=== PATIENT | female | born 1955 | race Caucasian/White ===

== ENCOUNTER 2023-05-14 10:56 | Day surgery (SDC) | payer MEDICARE, OTHER ==
[~2023-05-14] VITALS: Ht 160 cm; Wt 74.4 kg
[2023-05-14] MEDS ORDERED: BUPIVACAINE /PF 0.25% 30 ML VIAL INJ ONE (12:40)
[2023-05-14] MEDS ORDERED: ceFAZolin SODIUM 2 GM VIAL ONE (12:40)
[2023-05-14] MEDS ORDERED: SEVOFLURANE 15 MIN GAS INH ONE (12:40)
[2023-05-14] MEDS ORDERED: NS IRRIG SOLN 1000 ML IR ONE (12:40)
[2023-05-14] MEDS ORDERED: LR 1,000 ML IV.SOLN IV ONE (12:40)
[2023-05-14] MEDS ORDERED: PROPOFOL 200MG/ 20ML VIAL (DIPRIVAN) IV ONE (12:40)
[2023-05-14] MEDS ORDERED: KETOROLAC TROMETHAMINE 30 MG VIAL ONE (12:40)
[2023-05-14] MEDS ORDERED: ONDANSETRON HCL 4 MG/2 ML VIAL ONE (12:40)
[2023-05-14] MEDS ORDERED: METOCLOPRAMIDE HCL 10 MG/2 ML VIAL IVP PRN (13:15)
[2023-05-14] MEDS ORDERED: IBUPROFEN 600 MG TABLET PO ONE (13:15)
[2023-05-14] MEDS ORDERED: ONDANSETRON HCL 4 MG/2 ML VIAL IVP PRN ×2 (13:15→15:00)
[2023-05-14] MEDS ORDERED: HYDROmorphone 1 MG/ML INJ. CARTRIDGE IVP PRN (13:15)
[2023-05-14] MEDS ORDERED: HYDROmorphone 1 MG/ML INJ. CARTRIDGE ONE (13:56)
[2023-05-14] MEDS ORDERED: ePHEDrine sulfate 50 MG/ML VIAL ONE (14:28)
[2023-05-14] MEDS ORDERED: MORPHINE 4 MG INJ. 4 MG/ML VIAL IVP PRN (15:00)
[2023-05-14] MEDS ORDERED: ACETAMINOPHEN/CODEINE 300 MG-30 MG TABLET PO PRN (15:00)
[2023-05-14 18:59] VITALS: BP_SYST 148; PULSE 70; RESP 18; TEMP 98.6; O2SAT 99
== END 2023-05-14 16:55 | disposition home or self-care (01) ==
LOC: SDS 10:56 → SMU 10:57 → SDS 16:55
PROVIDERS: ATTEND Surgery
DX: D17.0 Benign lipomatous neoplasm of skin and subcutaneous tissue of head, face and neck (principal); I10 Essential (primary) hypertension; E78.5 Hyperlipidemia, unspecified; Z79.899 Other long term (current) drug therapy
CPT/HCPCS: 21552; 87081; 88304; J3490; J1885; J2405; J2704; J1170; J7120